=== PATIENT | male | born 1955 | race Caucasian/White ===

== ENCOUNTER 2017-09-17 01:37 | Emergency (ER) | payer OTHER | END 2017-09-17 03:50 | disposition home or self-care (01) | LOC: ERS 01:37 | DX: S71.102A Unspecified open wound, left thigh, initial encounter (principal); E11.9 Type 2 diabetes mellitus without complications; E78.5 Hyperlipidemia, unspecified; I10 Essential (primary) hypertension; F32.9 Major depressive disorder, single episode, unspecified; F17.220 Nicotine dependence, chewing tobacco, uncomplicated; W34.00XA Accidental discharge from unspecified firearms or gun, initial encounter | CPT/HCPCS: 99284 ==